=== PATIENT | female | born 1965 | race Caucasian/White ===

== ENCOUNTER 2020-11-18 09:25 | Emergency (ER) | payer BC ==
[2020-11-18 10:31] LABS: Absolute Lymphocytes (CBC) 1.3 K/uL (0.7-4.9); Basophils % 0.6 % (0-1.3); Hematocrit 38.2 % (36.0-45.0); Lymphocytes % 12.8 % (15.3-44.8); MPV 7.2 fL (7.6-11.3); RBC Red Blood Cell Count 4.03 M/uL (3.86-4.86)
[2020-11-18] MEDS ORDERED: NA CHLORIDE 0.9% 1,000 ML ONE (10:32)
[2020-11-18 10:33] LABS: Protime INR 1.04
[2020-11-18 10:49] LABS: ALT/SGPT 15 U/L (12-78); AST/SGOT 14 U/L (15-37); Albumin 3.7 g/dL (3.4-5.0); Alkaline Phosphatase 71 U/L (45-117); BUN Blood Urea Nitrogen 14 mg/dL (7-18); Bicarbonate 28 mmol/L (21-32); Bilirubin Direct 0.1 mg/dL (0-0.2); Bilirubin Total 0.4 mg/dL (0.2-1.0); Glucose Level 100 mg/dL (74-106); Lipase 217 U/L (73-393); Magnesium 2.1 mg/dL (1.8-2.4); NT PRO-BNP 28 pg/mL (<125); Potassium 3.8 mmol/L (3.5-5.1); Protein, Total 6.9 g/dL (6.4-8.2); Sodium Level 140 mmol/L (136-145); Troponin (Emerg Dept Use Only) < 0.02 ng/mL (0.0-0.045)
--- NOTE | 2020-11-18 11:24 | RAD REPORT ---
EXAM DESCRIPTION: RAD - Chest Single View - 11/18/2020 10:43 am CLINICAL HISTORY: Cough;Chest pain Chest pain. COMPARISON: No comparisons FINDINGS: Portable technique limits examination quality. The lungs are grossly clear. The heart is normal in size. No displaced fractures. IMPRESSION: No acute intrathoracic process suspected.
--- NOTE | 2020-11-18 12:16 | EDPHYS ---
Physician Documentation [facility] Name: Meg Callahan Age: 55 yrs Sex: Female : 1965 Arrival Date: 11/18/2020 Time: 09:32 Bed 13 Private MD: FRANCISCO Physician Jaret Colón HPI: 11/18 12:09 This 55 yrs old Female presents to ER via Ambulatory with complaints of [facility] Congestion, Chest Pain. 12:09 The patient or guardian reports chest pain that is located primarily in the anterior [facility] chest wall, bilaterally. Onset: yesterday. The pain does not radiate. Associated signs and symptoms: Pertinent positives: cough. The chest pain is described as a pressure. Duration: The patient or guardian reports a single episode, that is still ongoing. Modifying factors: The symptoms are alleviated by nothing. the symptoms are aggravated by nothing. Severity of pain: At its worst the pain was mild in the emergency department the pain is unchanged. The patient has experienced similar episodes in the past, several times. Historical: - Allergies: 09:36 Keflex; aa5 - PMHx: 09:36 Hypothyroidism; aa5 - PSHx: 09:36 hysterectomy; aa5 - Immunization history:: Client reports receiving the 2nd dose of the Covid vaccine. - Social history:: Smoking status: Patient denies any tobacco usage or history of. - Family history:: not pertinent. ROS: 12:09 Constitutional: Negative for fever, chills, and weight loss, Eyes: Negative for injury, barry pain, redness, and discharge, ENT: Negative for injury, pain, and discharge, Neck: Negative for injury, pain, and swelling, Cardiovascular: Negative for chest pain, palpitations, and edema, Abdomen/GI: Negative for abdominal pain, nausea, vomiting, diarrhea, and constipation, Back: Negative for injury and pain, : Negative for injury, bleeding, discharge, and swelling, MS/Extremity: Negative for injury and deformity, Skin: Negative for injury, rash, and discoloration, Neuro: Negative for headache, weakness, numbness, tingling, and seizure, Psych: Negative for depression, anxiety, suicide ideation, homicidal ideation, and hallucinations, Allergy/Immunology: Negative for hives, rash, and allergies, Endocrine: Negative for neck swelling, polydipsia, polyuria, polyphagia, and marked weight changes, Hematologic/Lymphatic: Negative for swollen nodes, abnormal bleeding, and unusual bruising. 12:09 Respiratory: Positive for cough, with no reported sputum. Exam: 12:09 Constitutional: This is a well developed, well nourished patient who is awake, alert, barry and in no acute distress. Head/Face: Normocephalic, atraumatic. Eyes: Pupils equal round and reactive to light, extra-ocular motions intact. Lids and lashes normal. Conjunctiva and sclera are non-icteric and not injected. Cornea within normal limits. Periorbital areas with no swelling, redness, or edema. ENT: Nares patent. No nasal discharge, no septal abnormalities noted. Tympanic membranes are normal and external auditory canals are clear. Oropharynx with no redness, swelling, or masses, exudates, or evidence of obstruction, uvula midline. Mucous membranes moist. Neck: Trachea midline, no thyromegaly or masses palpated, and no cervical lymphadenopathy. Supple, full range of motion without nuchal rigidity, or vertebral point tenderness. No Meningismus. Chest/axilla: Normal chest wall appearance and motion. Nontender with no deformity. No lesions are appreciated. Cardiovascular: Regular rate and rhythm with a normal S1 and S2. No gallops, murmurs, or rubs. Normal PMI, no JVD. No pulse deficits. Respiratory: Lungs have equal breath sounds bilaterally, clear to auscultation and percussion. No rales, rhonchi or wheezes noted. No increased work of breathing, no retractions or nasal flaring. Abdomen/GI: Soft, non-tender, with normal bowel sounds. No distension or tympany. No guarding or rebound. No evidence of tenderness throughout. Back: No spinal tenderness. No costovertebral tenderness. Full range of motion. Female : Normal external genitalia. Skin: Warm, dry with normal turgor. Normal color with no rashes, no lesions, and no evidence of cellulitis. MS/ Extremity: Pulses equal, no cyanosis. Neurovascular intact. Full, normal range of motion. Neuro: Awake and alert, GCS 15, oriented to person, place, time, and situation. Cranial nerves II-XII grossly intact. Motor strength 5/5 in all extremities. Sensory grossly intact. Cerebellar exam normal. Normal gait. Psych: Awake, alert, with orientation to person, place and time. Behavior, mood, and affect are within normal limits. 12:09 Musculoskeletal/extremity: ROM: no acute changes, intact in all extremities, Circulation is intact in all extremities. Sensation intact. Compartment Syndrome exam of affected extremity: is normal. no pain, no numbness, no tingling, no sensation deficit, no palor, no weak pulses, DVT Exam: No signs of deep vein thrombosis. no pain, no swelling, no tenderness, negative Homans' sign noted on exam, no appreciated bluish discoloration, no erythema, no increased warmth. 12:19 ECG was reviewed by the Attending Physician. [facility] Vital Signs: 09:34 BP 137 / 75; Pulse 99; Resp 16 S; Temp 97.6; Pulse Ox 99% on R/A; Weight 62.6 kg (R); aa5 Height 5 ft. 2 in. (157.48 cm) (R); Pain 4/10; 10:02 Weight 62.6 kg; Height 5 ft. 2 in. (157.48 cm); kh1 10:02 Body Mass Index 25.24 (62.60 kg, 157.48 cm) kh1 MDM: 09:57 Patient medically screened. barry 12:11 Differential diagnosis: abnormal EKG, coronary artery disease chest wall pain, barry cholecystitis, hiatal hernia, pneumonia, stable angina, unstable angina. HEART Score: History: Slightly Suspicious (0), ECG: Normal (0), Age: > 45 and < 65 years (1), Risk Factors: No Risk Factors Known (0), Troponin: < or = 1 x Normal Limit (0). The patient was given aspirin in the Emergency Department. The patient's deep vein thrombosis risk score was calculated as follows: Total Score: 0. This patient was found to be at low risk for a deep vein thrombosis by using the Well's assessment criteria. The patient's pulmonary embolism risk score was calculated as follows: Total Score: 0-2 points. This patient was found to be at low risk for a pulmonary embolism by using the Well's assessment criteria. ANNE MARIE Risk Score: TOTAL SCORE = 0. Data reviewed: vital signs, nurses notes, lab test result(s), EKG, radiologic studies, plain films. Data interpreted: monitor car operator: rate is 99 beats/min, rhythm is regular, Pulse oximetry: on room air is 99 %. Test interpretation: by ED physician or midlevel provider: ECG, plain radiologic studies. Counseling: I had a detailed discussion with the patient and/or guardian regarding: the historical points, exam findings, and any diagnostic results supporting the discharge/admit diagnosis, lab results, radiology results, the need for outpatient follow up, for definitive care, a stove carriage operator, a family practitioner. 11/18 09:58 Order name: Basic Metabolic Panel [facility] 11/18 09:58 Order name: CBC with Diff [facility] 11/18 09:58 Order name: LFT's [facility] 11/18 09:58 Order name: Magnesium [facility] 11/18 09:58 Order name: NT PRO-BNP; Complete Time: 11:45 [facility] 11/18 09:58 Order name: PT-INR; Complete Time: 11:45 [facility] 11/18 09:58 Order name: Troponin (emerg Dept Use Only); Complete Time: 11:45 [facility] 11/18 09:58 Order name: Lipase; Complete Time: 11:45 [facility] 11/18 09:59 Order name: Basic Metabolic Panel; Complete Time: 11:45 [facility] 11/18 09:59 Order name: CBC with Automated Diff; Complete Time: 11:45 [facility] 11/18 09:59 Order name: Liver (Hepatic) Function; Complete Time: 11:45 [facility] 11/18 09:59 Order name: Magnesium; Complete Time: 11:45 [facility] 11/18 11:38 Order name: SARS-COV-2 RT PCR; Complete Time: 11:45 [facility] 11/18 09:58 Order name: XRAY Chest (1 view); Complete Time: 11:45 [facility] 11/18 09:58 Order name: EKG; Complete Time: 09:59 [facility] 11/18 09:58 Order name: Cardiac monitoring; Complete Time: 10:06 [facility] 11/18 09:58 Order name: EKG - Nurse/Tech; Complete Time: 10:02 [facility] 11/18 09:58 Order name: IV Saline Lock; Complete Time: 10:06 [facility] 11/18 09:58 Order name: Labs collected and sent; Complete Time: 10:06 [facility] 11/18 09:58 Order name: O2 Per Protocol; Complete Time: 10:12 [facility] 11/18 09:58 Order name: O2 Sat Monitoring; Complete Time: 10:06 barry EC:19 Rate is 88 beats/min. Rhythm is regular. QRS [place] is Normal. MA interval is normal. QRS barry interval is normal. QT interval is normal. No Q waves. T waves are Normal. No ST changes noted. Clinical impression: Normal ECG and No evidence of ischemia. Interpreted by me. Reviewed by me. Administered Medications: 10:12 Drug: NS 0.9% 1000 ml Route: IV; Rate: 75 ml/hr; Site: right antecubital; 1 Disposition Summary: 11/18/20 12:16 Discharge Ordered Location: Home barry Problem: new barry Symptoms: have improved barry Condition: Stable barry Diagnosis - Acute upper respiratory infection, unspecified barry - Chest pain, unspecified barry Followup: barry - With: Private Physician - When: 2 - 3 days - Reason: Recheck today's complaints, Continuance of care, Re-evaluation by your physician Discharge Instructions: - Discharge Summary Sheet barry - Nonspecific Chest Pain, Adult barry - Nonspecific Chest Pain, Adult, [id number] barry - Upper Respiratory Infection, Adult, [id number] barry - Aspirin and Your Heart barry - Cough, Adult barry Forms: - Medication Reconciliation Form barry - Thank You Letter barry - Antibiotic Education barry - Prescription Opioid Use barry Signatures: Dispatcher [employer] EDMS Jaret Colón MD MD cha Calderon, Audri RN RN [email or web address] Sabina Mehta [facility] Corrections: (The following items were deleted from the chart) 10:41 09:59 CORONAVIRUS+ ordered. EDDC EDMS
--- NOTE | 2020-11-18 12:16 | ER ---
Nurse's Notes [facility] Name: Meg Callahan Age: 55 yrs Sex: Female : 1965 Arrival Date: 11/18/2020 Time: 09:32 Bed 13 Private MD: Diagnosis: Acute upper respiratory infection, unspecified;Chest pain, unspecified Presentation: 11/18 09:34 Chief complaint: Patient states: "last week I had a sore throat and I thought it was aa5 allergies and it went away but yesterday I started with a cough and this morning my chest feels heavy". Coronavirus screen: cough unrelated to allergies. Ebola Screen: Patient negative for fever greater than or equal to 101.5 degrees Fahrenheit, and additional compatible Ebola Virus Disease symptoms. Initial Sepsis Screen: Does the patient meet any 2 criteria? HR > 90 bpm. Does the patient have a suspected source of infection? No. Patient's initial sepsis screen is negative. Risk Assessment: Do you want to hurt yourself or someone else? Patient reports no desire to harm self or others. Onset of symptoms was November 2020. 09:34 Method Of Arrival: [facility] 09:34 Acuity: CRUZ 3 aa5 Triage Assessment: 10:02 General: Appears in no apparent distress. comfortable, Behavior is calm, cooperative, kh1 appropriate for age, quiet. Pain: Denies pain. Complains of pain in chest Quality of pain is described as heavy, Pain began gradually, 2-3 days ago. Respiratory: Reports shortness of breath at rest cough that is non-productive. Historical: - Allergies: 09:36 Keflex; aa5 - PMHx: 09:36 Hypothyroidism; aa5 - PSHx: 09:36 hysterectomy; aa5 - Immunization history:: Client reports receiving the 2nd dose of the Covid vaccine. - Social history:: Smoking status: Patient denies any tobacco usage or history of. - Family history:: not pertinent. Screenin:04 Abuse screen: Denies threats or abuse. Nutritional screening: No deficits noted. 1 Tuberculosis screening: No symptoms or risk factors identified. Fall Risk IV access (20 points). Assessment: 10:04 Cardiovascular: Reports chest pain, shortness of breath. Respiratory: Airway is patent [facility] 10:11 Cardiovascular: Rhythm is sinus rhythm. kh1 Vital Signs: 09:34 BP 137 / 75; Pulse 99; Resp 16 S; Temp 97.6; Pulse Ox 99% on R/A; Weight 62.6 kg (R); aa5 Height 5 ft. 2 in. (157.48 cm) (R); Pain 4/10; 10:02 Weight 62.6 kg; Height 5 ft. 2 in. (157.48 cm); kh1 10:02 Body Mass Index 25.24 (62.60 kg, 157.48 cm) [facility] ED Course: 09:32 Patient arrived in ED. am2 09:36 Triage completed. aa5 09:36 Arm band placed on. aa5 09:44 Sabina Mehta is Primary Nurse. kh1 09:57 Jaret Colón MD is Attending Physician. barry 10:02 EKG done, by ED staff, reviewed by Jaret Colón MD. em1 10:04 Patient has correct armband on for positive identification. Bed in low position. Call [facility] light in reach. Side rails up X 1. 10:05 Inserted saline lock: 20 gauge in right antecubital area, using aseptic technique. em1 Blood collected. by farm technician Ruth Ann Snell. 10:06 Initial lab(s) drawn, by ED staff, sent to lab. em1 10:12 Magnesium Sent. kh1 10:12 Basic Metabolic Panel Sent. kh1 10:12 CBC with Automated Diff Sent. kh1 10:12 Liver (Hepatic) Function Sent. kh1 10:12 Lipase Sent. kh1 10:12 Basic Metabolic Panel Sent. kh1 10:12 CBC with Diff Sent. kh1 10:12 LFT's Sent. kh1 10:12 Magnesium Sent. kh1 10:12 XRAY Chest (1 view) Sent. kh1 10:12 NT PRO-BNP Sent. kh1 10:12 PT-INR Sent. kh1 10:13 Troponin (emerg Dept Use Only) Sent. kh1 10:38 Magnesium Sent. kh1 10:38 Basic Metabolic Panel Sent. kh1 10:43 XRAY Chest (1 view) In Process Unspecified. EDMS Administered Medications: 10:12 Drug: NS 0.9% 1000 ml Route: IV; Rate: 75 ml/hr; Site: right antecubital; [facility] Outcome: 12:16 Discharge ordered by . barry 12:45 Patient left the ED. iw Signatures: Dispatcher [employer] EDJaret Bañuelos MD MD cha Williams, Irene, RN RN Torrey Price em1 Mary De Leon RN RN aa5 Marlene Parham am2 Sabina Mehta [facility] Corrections: (The following items were deleted from the chart) 10:41 10:12 CORONAVIRUS+ drawn and sent. [address]
[2020-11-18] MEDS ORDERED: ASPIRIN 81 MG CHEWABLE TABLET ONE (12:47)
[2020-11-18 12:57] VITALS: BP 137/75; TEMP 97.6; O2SAT 99
--- NOTE | 2020-11-19 08:16 | EKG ---
Test Date: 2020-11-18 Test Time: 09:57:33 Coagulant Dipper: TIARA MEASUREMENT RESULTS: Intervals: Rate: 88 ID: [id number] QRSD: 78 QT: 380 QTc: 459 Trade: P: 86 ID: [id number] QRS: 87 T: 32 INTERPRETIVE STATEMENTS: Normal sinus rhythm Normal ECG No previous ECG available for comparison Electronically Signed On 11-19-20 08:14:23 CDT by Benjamin Leon
== END 2020-11-18 12:45 | disposition home or self-care (01) ==
LOC: ER 09:25
DX: J06.9 Acute upper respiratory infection, unspecified (principal); Z20.822 Contact with and (suspected) exposure to COVID-19; Z88.1 Allergy status to other antibiotic agents
CPT/HCPCS: 93005; 85025; 80048; 36415; 83735; 85610; 80076; 84484; 83690; 83880; 71045; 99284; U0003; J7030